=== PATIENT | female | born 1960 | race Caucasian/White ===

== ENCOUNTER → 2019-05-03 | Day surgery (SDC) | payer BC ==
[~2019-05-03] MED LIST: ATOR40TA59 PO; CHOL500062 PO; CLON2TAB9 PO; HYOS0.375 PO; IV RINGERS,LACTATED 1000ML 1,000 ML IV SCH; LACT1CAP6 PO; LUBI8CAP4 PO; MELO15TA23 PO; OMEG10005 PO; ONDA-84 PO; PANT20TA2 PO; PRED20TA PO; PROPOFOL 40 ML IV ONE; SERT100T PO; TRAM50TA PO; TRAZ-118 PO
[2019-05-03 12:10] VITALS: BP 111/62
--- NOTE | 2019-05-04 16:06 | PATHOLOGY ---
[facility] Accession Number: [id number] . 01 Material submitted: . PART A: small bowel - SMALL BOWEL BX PART B: stomach - GASTRIC ANTRUM-BODY BX PART C: esophagus - DISTAL ESOPHAGUS BX. Modifiers: distal PART D: colon - ASCENDING COLON POLYP. Modifiers: ascending PART E: ileum - TERMINAL ILEUM BX PART F: colon - RIGHT COLON BX. Modifiers: right PART G: colon - LEFT COLON BX. Modifiers: left . 01 Clinical history: . Abdominal pain . 02 Diagnosis: A. Small bowel biopsies: - No significant pathologic abnormalities. . B. Gastric biopsies, gastric antrum and gastric body: - Congestion and slight chronic inflammation. . C. Esophageal biopsies, distal esophagus: - Segments of hyperplastic squamous esophageal mucosa, esophagogastric mucosa, and gastric mucosa showing chronic inflammation, consistent with reflux esophagitis. . D. Colon biopsy, ascending colon polyp: - Prominent mucosal fold. . E. Small intestine mucosa, terminal ileum biopsies: - No diagnostic abnormalities. . F. Colonic mucosa, right colon biopsies: - No significant pathologic abnormalities. . G. Colonic mucosa, left colon biopsies: - No significant pathologic abnormalities. . (JPM:diego; 05/04/2019) [facility] 05/04/2019 1042 Local . 02 Comment: Sections of the small bowel biopsy reveal segments of duodenal and small intestine mucosa. Where best oriented, the mucosal villi show no sprue-like changes or significant inflammatory changes. . Sections of the gastric biopsy show congestion and slight chronic inflammation. A properly controlled immunoperoxidase stain for Helicobacter is negative for Helicobacter organisms. . Sections of the distal esophageal biopsy reveal segments of hyperplastic squamous esophageal mucosa, esophagogastric mucosa, and gastric mucosa showing mild to moderate chronic inflammation. The findings are consistent with reflux esophagitis. There is no evidence of Lomeli's change, dysplasia, or malignancy. . Sections of the ascending colon biopsy reveal several segments of colonic mucosa consistent with prominent mucosal fold. There are no adenomatous changes or evidence of malignancy. . Sections of the terminal ileum biopsy reveal segments of small intestine mucosa with mucosal-associated lymphoid tissue. The mucosal villi show no sprue-like changes or significant inflammatory changes. . Sections of the right colon and left colon biopsies appear similar and reveal multiple segments of colonic mucosa. There is no evidence of a chronic destructive colitis, lymphocytic colitis, or collagenous colitis. (JPM:diego 05/04/2019) . . Special stain performed: Immunoperoxidase stain for Helicobacter on B1 . 02 Electronically signed: . Vu Jha MD, Pathologist NPI- [id number] . 01 Gross description: . A. The specimen is received in formalin, labeled "Levra, Dora, small bowel BX" and consists of 3 fragments of pink-denton tissue measuring between 0.3 x 0.2 cm and 0.5 x 0.3 cm which are entirely submitted in A1. . B. The specimen is received in formalin, labeled " Levra, Dora, gastric antrum/body" and consists of 4 fragments of pink-denton tissue measuring 1.0 x 0.4 x 0.2 cm in aggregate which are entirely submitted in B1. . C. The specimen is received in formalin, labeled " Levra, Dora, distal esophagus BX" and consists of 4 translucent fragments of pink-ochoa tissue measuring 0.8 x 0.5 x 0.2 cm in aggregate which are entirely submitted in C1. . D. The specimen is received in formalin, labeled " Levra, Dora, ascending colon polyp" and consists of a fragment of pink-denton tissue measuring 0.4 x 0.3 x 0.2 cm which is entirely submitted in D1. . E. The specimen is received in formalin, labeled " Levra, Dora, terminal ileum BX" and consists of 2 fragments of pink-denton tissue measuring 0.1 x 0.1 cm and 0.6 x 0.3 cm which are entirely submitted in E1. . F. The specimen is received in formalin, labeled " Levra, Dora, right colon BX" and consists of 4 fragments of denton tissue measuring 0.8 x 0.5 x 0.2 cm in aggregate which are entirely submitted in F1. . G. The specimen is received in formalin, labeled " Levra, Dora, left colon BX" and consists of 3 fragments of pink-denton tissue measuring between 0.3 x 0.3 cm and 0.5 x 0.4 cm which are entirely submitted in G1. (SDY; 05/03/2019) SYU/SYU 05/03/2019 1725 Local . 02 Pathologist provided ICD-10: K31.89, K29.50, K20.8, R10.9 . 02 CPT . 957774, 095728, 343633, 641212, 585065, [id number], [id number], [id number] Specimen Comment: A courtesy copy of this report has been sent to [phone], [phone] Specimen Comment: [id number] Specimen Comment: Report sent to / DR CARMONA Performed at: 01 [facility] [address] [facility] [address], [place] [id number] MD Bhanu Puckett MD Phone: [phone] Performed at: 02 [facility] [address] [place], [place] [id number] MD Vu Jha MD Phone: [phone]
== END ==
LOC: ENDOS 10:29
PROVIDERS: ATTEND Internal Medicine Gastroenterology
DX: R19.4 Change in bowel habit (principal); K57.30 Diverticulosis of large intestine without perforation or abscess without bleeding; K21.0 Gastro-esophageal reflux disease with esophagitis; K29.50 Unspecified chronic gastritis without bleeding; K52.9 Noninfective gastroenteritis and colitis, unspecified; K64.0 First degree hemorrhoids; K63.89 Other specified diseases of intestine; F41.9 Anxiety disorder, unspecified; F32.9 Major depressive disorder, single episode, unspecified; K26.9 Duodenal ulcer, unspecified as acute or chronic, without hemorrhage or perforation; D64.9 Anemia, unspecified; E78.5 Hyperlipidemia, unspecified; F15.90 Other stimulant use, unspecified, uncomplicated; Z72.89 Other problems related to lifestyle; Z91.040 Latex allergy status; Z98.890 Other specified postprocedural states
CPT/HCPCS: 43239; 45380; 88305; 88342; J2704